=== PATIENT | male | born 1975 | race Caucasian/White ===

== ENCOUNTER → 2018-04-23 | Outpatient (CLI) | payer OTHER ==
[~2018-04-23] MED LIST: AMLOD-VALSA-HC1 EACH; VALSARTAN160 MG
== END | disposition home or self-care (01) ==
LOC: LAB 15:28
DX: D75.0 Familial erythrocytosis (principal); D75.1 Secondary polycythemia; R70.1 Abnormal plasma viscosity; R71.8 Other abnormality of red blood cells; G47.33 Obstructive sleep apnea (adult) (pediatric); I10 Essential (primary) hypertension; E78.2 Mixed hyperlipidemia; B02.9 Zoster without complications; D75.9 Disease of blood and blood-forming organs, unspecified; D51.1 Vitamin B12 deficiency anemia due to selective vitamin B12 malabsorption with proteinuria; D51.0 Vitamin B12 deficiency anemia due to intrinsic factor deficiency; D55.0 Anemia due to glucose-6-phosphate dehydrogenase [G6PD] deficiency; E06.3 Autoimmune thyroiditis; E03.8 Other specified hypothyroidism; D68.8 Other specified coagulation defects; K82.8 Other specified diseases of gallbladder

== ENCOUNTER 2018-04-27 13:58 | Outpatient (CLI) | payer OTHER | END 2018-04-27 14:12 | disposition home or self-care (01) | LOC: SONOGRAMA 13:58 | DX: D75.0 Familial erythrocytosis (principal); D75.1 Secondary polycythemia; R70.1 Abnormal plasma viscosity; R71.8 Other abnormality of red blood cells; G47.33 Obstructive sleep apnea (adult) (pediatric); I10 Essential (primary) hypertension; E78.2 Mixed hyperlipidemia; K82.9 Disease of gallbladder, unspecified; B02.9 Zoster without complications; D75.9 Disease of blood and blood-forming organs, unspecified; E06.3 Autoimmune thyroiditis; E03.8 Other specified hypothyroidism ==

== ENCOUNTER 2018-06-05 21:39 | Emergency (ER) | payer OTHER ==
[~2018-06-05] VITALS: Ht 162.6 cm; Wt 88.9 kg
[2018-06-05] MEDS ORDERED: COREG CR10 MG (21:54)
[2018-06-06] MEDS ORDERED: NORVASC5 MG PO (03:36)
== END 2018-06-06 03:32 | disposition home or self-care (01) ==
LOC: ER 21:39
DX: I10 Essential (primary) hypertension (principal)

== ENCOUNTER 2018-09-21 10:20 | Outpatient (CLI) | payer OTHER ==
[~2018-09-21 10:20] MED LIST changes: +COREG CR10 MG; +NORVASC5 MG PO
== END 2018-09-21 10:24 | disposition home or self-care (01) ==
LOC: LAB 10:20
DX: D75.1 Secondary polycythemia (principal); R70.1 Abnormal plasma viscosity; G47.33 Obstructive sleep apnea (adult) (pediatric); I10 Essential (primary) hypertension; E78.2 Mixed hyperlipidemia; K82.8 Other specified diseases of gallbladder; B02.9 Zoster without complications; D75.89 Other specified diseases of blood and blood-forming organs; E05.20 Thyrotoxicosis with toxic multinodular goiter without thyrotoxic crisis or storm; E04.2 Nontoxic multinodular goiter; D50.8 Other iron deficiency anemias; D51.8 Other vitamin B12 deficiency anemias; E03.8 Other specified hypothyroidism

== ENCOUNTER 2018-10-15 07:30 | Outpatient (CLI) | payer OTHER | END 2018-10-15 07:47 | disposition home or self-care (01) | LOC: NUCLEAR 07:30 | DX: D75.1 Secondary polycythemia (principal); R70.1 Abnormal plasma viscosity; R71.8 Other abnormality of red blood cells; G47.33 Obstructive sleep apnea (adult) (pediatric); I10 Essential (primary) hypertension; E78.2 Mixed hyperlipidemia; K82.0 Obstruction of gallbladder; B02.9 Zoster without complications; D75.9 Disease of blood and blood-forming organs, unspecified; E05.20 Thyrotoxicosis with toxic multinodular goiter without thyrotoxic crisis or storm; E04.2 Nontoxic multinodular goiter | CPT/HCPCS: 78013; A9512 ==

== ENCOUNTER 2018-10-22 07:47 | Outpatient (CLI) | payer OTHER | END 2018-10-22 08:18 | disposition home or self-care (01) | LOC: NUCLEAR 07:47 | DX: D75.1 Secondary polycythemia (principal); D70.1 Agranulocytosis secondary to cancer chemotherapy; R71.8 Other abnormality of red blood cells; G47.33 Obstructive sleep apnea (adult) (pediatric); I10 Essential (primary) hypertension; E78.2 Mixed hyperlipidemia; K82.9 Disease of gallbladder, unspecified; B02.9 Zoster without complications; D75.9 Disease of blood and blood-forming organs, unspecified; E05.20 Thyrotoxicosis with toxic multinodular goiter without thyrotoxic crisis or storm; E04.2 Nontoxic multinodular goiter | CPT/HCPCS: 78012; A9531 ==

== ENCOUNTER 2019-04-05 09:59 | Outpatient (CLI) | payer OTHER | END 2019-04-05 10:22 | disposition home or self-care (01) | LOC: LAB 09:59 | DX: E03.8 Other specified hypothyroidism (principal); D50.8 Other iron deficiency anemias; I10 Essential (primary) hypertension; D75.1 Secondary polycythemia; R70.1 Abnormal plasma viscosity; G47.33 Obstructive sleep apnea (adult) (pediatric); E78.2 Mixed hyperlipidemia; K82.9 Disease of gallbladder, unspecified; B02.9 Zoster without complications; D75.9 Disease of blood and blood-forming organs, unspecified; E05.20 Thyrotoxicosis with toxic multinodular goiter without thyrotoxic crisis or storm; E04.2 Nontoxic multinodular goiter; R97.8 Other abnormal tumor markers ==

== ENCOUNTER 2019-04-27 09:10 | Outpatient (CLI) | payer OTHER | END 2019-04-27 09:24 | disposition home or self-care (01) | LOC: SONOGRAMA 09:10 | DX: I11.9 Hypertensive heart disease without heart failure (principal) ==

== ENCOUNTER → 2019-04-27 10:35 | Outpatient (CLI) | payer OTHER | END | disposition home or self-care (01) | LOC: LAB 10:35 | DX: E78.2 Mixed hyperlipidemia (principal); R70.1 Abnormal plasma viscosity; G47.33 Obstructive sleep apnea (adult) (pediatric); I10 Essential (primary) hypertension; K82.8 Other specified diseases of gallbladder; B02.8 Zoster with other complications; D75.89 Other specified diseases of blood and blood-forming organs; E05.20 Thyrotoxicosis with toxic multinodular goiter without thyrotoxic crisis or storm; E04.2 Nontoxic multinodular goiter; D50.8 Other iron deficiency anemias; D51.8 Other vitamin B12 deficiency anemias; K90.89 Other intestinal malabsorption; I11.9 Hypertensive heart disease without heart failure ==

== ENCOUNTER 2019-08-19 09:54 | Outpatient (CLI) | payer OTHER | END 2019-08-19 10:13 | disposition home or self-care (01) | LOC: LAB 09:54 | DX: D75.1 Secondary polycythemia (principal); R70.1 Abnormal plasma viscosity; G47.33 Obstructive sleep apnea (adult) (pediatric); I10 Essential (primary) hypertension; E78.2 Mixed hyperlipidemia; K82.9 Disease of gallbladder, unspecified; B02.9 Zoster without complications; D75.89 Other specified diseases of blood and blood-forming organs; E05.20 Thyrotoxicosis with toxic multinodular goiter without thyrotoxic crisis or storm; E04.2 Nontoxic multinodular goiter; E03.8 Other specified hypothyroidism; D73.89 Other diseases of spleen; D50.8 Other iron deficiency anemias; D51.1 Vitamin B12 deficiency anemia due to selective vitamin B12 malabsorption with proteinuria; D51.0 Vitamin B12 deficiency anemia due to intrinsic factor deficiency; R97.0 Elevated carcinoembryonic antigen [CEA]; R97.8 Other abnormal tumor markers; R97.20 Elevated prostate specific antigen [PSA]; D72.89 Other specified disorders of white blood cells ==

== ENCOUNTER 2021-04-14 09:40 | Outpatient (CLI) | payer OTHER | END 2021-04-14 09:53 | disposition home or self-care (01) | LOC: LAB 09:40 | PROVIDERS: ATTEND Internal Medicine Hematology & Oncology | DX: D75.1 Secondary polycythemia (principal); R70.1 Abnormal plasma viscosity; R71.8 Other abnormality of red blood cells; G47.33 Obstructive sleep apnea (adult) (pediatric); I10 Essential (primary) hypertension; E78.2 Mixed hyperlipidemia; K82.9 Disease of gallbladder, unspecified; B02.9 Zoster without complications ==

== ENCOUNTER 2021-04-27 09:43 | Outpatient (CLI) | payer OTHER | END 2021-04-27 09:55 | disposition home or self-care (01) | LOC: SONOGRAMA 09:43 | PROVIDERS: ATTEND Internal Medicine Hematology & Oncology | DX: E04.2 Nontoxic multinodular goiter (principal); D75.1 Secondary polycythemia; R70.1 Abnormal plasma viscosity; G47.33 Obstructive sleep apnea (adult) (pediatric); I10 Essential (primary) hypertension; E78.2 Mixed hyperlipidemia ==

== ENCOUNTER 2021-10-14 09:37 | Emergency (ER) | payer OTHER ==
[~2021-10-14] VITALS: Ht 162.6 cm; Wt 86.2 kg
[2021-10-14] MEDS ORDERED: CARVEDILOL12.5 MG (09:56)
== END 2021-10-14 11:17 | disposition home or self-care (01) ==
LOC: ER 09:37
DX: I10 Essential (primary) hypertension (principal)

== ENCOUNTER 2021-10-21 13:20 | Outpatient (CLI) | payer OTHER ==
[~2021-10-21 13:20] MED LIST changes: +CARVEDILOL12.5 MG
== END 2021-10-21 13:31 | disposition home or self-care (01) ==
LOC: RAD 13:20
PROVIDERS: ATTEND Physical Medicine & Rehabilitation
DX: M54.2 Cervicalgia (principal); M54.12 Radiculopathy, cervical region; G31.89 Other specified degenerative diseases of nervous system
CPT/HCPCS: 72141

== ENCOUNTER 2021-10-26 10:00 | Outpatient (CLI) | payer OTHER | END 2021-10-26 14:30 | disposition home or self-care (01) | LOC: SONOGRAMA 10:00 | PROVIDERS: ATTEND Pathology Anatomic Pathology & Clinical Pathology | DX: E04.2 Nontoxic multinodular goiter (principal) ==

== ENCOUNTER 2022-07-21 16:24 | Emergency (ER) | payer OTHER ==
[~2022-07-21] VITALS: Ht 162.6 cm; Wt 88.5 kg
[2022-07-21] MEDS ORDERED: AMLODIPINE-OLM1 EACH (16:52)
== END 2022-07-21 19:43 | disposition home or self-care (01) ==
LOC: ER 16:24
DX: I10 Essential (primary) hypertension (principal); Z88.0 Allergy status to penicillin; Z91.013 Allergy to seafood

== ENCOUNTER 2023-02-07 10:31 | Inpatient (IN) | payer OTHER ==
[~2023-02-07] VITALS: Ht 162.6 cm; Wt 78.9 kg
[~2023-02-07 10:31] MED LIST changes: +AMLODIPINE-OLM1 EACH
[2023-02-08] MEDS ORDERED: ST. JOSEPH ASPI81 M2 (08:24)
[2023-02-08] MEDS ORDERED: PYRIDOXINE HCL100 MG (08:29)
[2023-02-08] MEDS ORDERED: TRAZODONE HCL100 MG (08:29)
[2023-02-08] MEDS ORDERED: AZELASTIN-FLUTI23 GM (08:29)
[2023-02-08] MEDS ORDERED: ABANEU-SL TABL1 EACH (08:29)
[2023-02-08] MEDS ORDERED: PRAMIPEXOLE DI0.5 MG (08:29)
[2023-02-11] MEDS ORDERED: INTESTINEX680 M1 PO (10:51)
== END 2023-02-12 00:21 | disposition home or self-care (01) | DRG 684 ==
LOC: ER 10:31 → MEDJ 22:12
PROVIDERS: ADMIT Internal Medicine; ATTEND Internal Medicine
PROC: BW21ZZZ Computerized Tomography (CT Scan) of Abdomen and Pelvis (ICD-10-PCS; 2023-02-07)
PROC: BW40ZZZ Ultrasonography of Abdomen (ICD-10-PCS; 2023-02-07)
PROC: 4A12X4Z Monitoring of Cardiac Electrical Activity, External Approach (ICD-10-PCS; 2023-02-08)
PROC: BW28ZZZ Computerized Tomography (CT Scan) of Head (ICD-10-PCS; principal; 2023-02-09)
DX: N17.9 Acute kidney failure, unspecified (principal); I95.9 Hypotension, unspecified; K22.82 Esophagogastric junction polyp; I10 Essential (primary) hypertension

== ENCOUNTER 2023-04-21 21:59 | Emergency (ER) | payer OTHER ==
[~2023-04-21] VITALS: Ht 162.6 cm; Wt 83.5 kg
[~2023-04-21 21:59] MED LIST changes: +ABANEU-SL TABL1 EACH; +AZELASTIN-FLUTI23 GM; +INTESTINEX680 M1 PO; +PRAMIPEXOLE DI0.5 MG; +PYRIDOXINE HCL100 MG; +ST. JOSEPH ASPI81 M2; +TRAZODONE HCL100 MG
== END 2023-04-22 01:26 | disposition home or self-care (01) ==
LOC: ER 21:59
DX: J00 Acute nasopharyngitis [common cold] (principal); Z91.013 Allergy to seafood; Z88.0 Allergy status to penicillin

== ENCOUNTER 2023-10-11 08:56 | Outpatient (CLI) | payer OTHER ==
[2023-10-11 10:30] LABS: HEMATOCRIT 46.2 % (39.0-48.0); HEMOGLOBIN 16.2 g/dL (13-16.00); MEAN CELL VOLUME 87.2 fL (80.0-100.00); MEAN CORPUSCULAR HEMOGLOBIN 30.5 pg (27.00-32.0); PLATELET COUNT 157 K/uL (150-450); RED CELL DISTRIBUTION WIDTH 13.3 % (11.5-14.5)
[2023-10-11 10:52] LABS: BILIRUBIN TOTAL 0.89 mg/dL (0.3-1.2); CALCIUM 9.3 mg/dL (8.5-10.1); CHOL HDL RATIO 5.7 (0-5.0); CREATININE SERUM 1.26 mg/dL (0.70-1.30); GFR 60.58; GLOBULINA 3.7 G/DL (2.4-3.5); POTASSIUM 3.68 mEq/L (3.5-5.1); PROSTATIC SPECIFIC ANTIGEN 0.284 NG/ML (0.010-4.00); TOTAL PROTEIN 7.7 gm/dL (6.4-8.2)
[2023-10-12 06:06] LABS: ESTRADIOL SERUM 18.5 pg/mL (7.6-42.6)
[2023-10-12 15:23] LABS: PLATELET ESTIMATE NORMAL (NORMAL)
== END 2023-10-11 08:59 | disposition home or self-care (01) ==
LOC: LAB 08:56
PROVIDERS: ATTEND Internal Medicine Hematology & Oncology
DX: D50.8 Other iron deficiency anemias (principal); R79.9 Abnormal finding of blood chemistry, unspecified; I10 Essential (primary) hypertension; R74.02 Elevation of levels of lactic acid dehydrogenase [LDH]; K76.89 Other specified diseases of liver; D75.1 Secondary polycythemia; R70.1 Abnormal plasma viscosity; C47.3 Malignant neoplasm of peripheral nerves of thorax; K82.9 Disease of gallbladder, unspecified; B02.9 Zoster without complications; D75.9 Disease of blood and blood-forming organs, unspecified; E05.20 Thyrotoxicosis with toxic multinodular goiter without thyrotoxic crisis or storm; E04.2 Nontoxic multinodular goiter; E03.8 Other specified hypothyroidism; D73.89 Other diseases of spleen; E29.1 Testicular hypofunction